=== PATIENT | female | born 1960 | race Asian ===

== ENCOUNTER 2021-07-28 09:36 | Outpatient (CLI) | payer BC | END 2021-07-28 09:37 | disposition home or self-care (01) | LOC: CSHULT 09:36 | PROVIDERS: ATTEND Internal Medicine | DX: N28.1 Cyst of kidney, acquired (principal) | CPT/HCPCS: 76770 ==

== ENCOUNTER 2022-02-07 20:20 | Emergency (ER) | payer BC | END 2022-02-07 22:00 | disposition home or self-care (01) | LOC: CSHERS 20:20 | DX: S61.011A Laceration without foreign body of right thumb without damage to nail, initial encounter (principal); E11.9 Type 2 diabetes mellitus without complications; E78.5 Hyperlipidemia, unspecified; Z79.899 Other long term (current) drug therapy; Z79.84 Long term (current) use of oral hypoglycemic drugs; W26.8XXA Contact with other sharp object(s), not elsewhere classified, initial encounter | CPT/HCPCS: 12001 ==

== ENCOUNTER 2023-01-04 10:23 | Outpatient (CLI) | payer BC ==
[2023-01-04] MEDS ORDERED: Magnevist 469MG/ML 20 ML VIAL ONE (10:33)
== END 2023-01-04 10:24 | disposition home or self-care (01) ==
LOC: CSHMRI 10:23
PROVIDERS: ATTEND Student in an Organized Health Care Education/Training Program
DX: H90.3 Sensorineural hearing loss, bilateral (principal)
CPT/HCPCS: 70553; 82565

== ENCOUNTER 2024-05-08 10:58 | Outpatient (CLI) | payer BC | END 2024-05-08 10:59 | disposition home or self-care (01) | LOC: CSHMAMMO 10:58 | PROVIDERS: ATTEND Internal Medicine | DX: Z12.31 Encounter for screening mammogram for malignant neoplasm of breast (principal) | CPT/HCPCS: 77063; 77067 ==